=== PATIENT | male | born 2000 | race Caucasian/White ===

== ENCOUNTER 2023-11-23 21:32 | Emergency (ER) | payer BC ==
[~2023-11-23] VITALS: Ht 182.9 cm; Wt 90.7 kg
[2023-11-23] MEDS: diphenhydrAMINE HCL 50 MG/ML VIAL IV ONE (21:59)
[2023-11-23] MEDS: methylPREDNISolone SOD SUCC 125 MG/2ML VIAL IV ONE (21:59)
[2023-11-23] MEDS: FAMOTIDINE/PF INJ 20 MG/2 ML VIAL IV ONE (21:59)
[2023-11-23] MEDS: IV NS 0.9% 1,000 ML BAG IV ONE (21:59)
[2023-11-23 23:04] LABS: BASOPHILS % (AUTO) 0.2 % (0.0-2.0); CALCIUM, SERUM 9.5 mg/dL (8.5-10.1); CREATININE 1.4 mg/dL (0.6-1.3); EOSINOPHILS # (AUTO) 0.1 K/uL (0.0-0.7); EOSINOPHILS % (AUTO) 1.1 % (0.0-6.0); HEMATOCRIT 44 % (39-51); LYMPHOCYTES % (AUTO) 46.4 % (20.0-44.0); MEAN CORPUSCULAR HEMOGLOBIN 30 PG (26.0-33.0); MEAN CORPUSCULAR HGB CONC 35 g/dl (31.0-36.0); MEAN CORPUSCULAR VOLUME 87 fL (80-96); MONOCYTES # (AUTO) 0.2 K/uL (0.1-1.30); MONOCYTES % (AUTO) 2.9 % (2.0-12.0); NEUTROPHILS # (AUTO) 4.3 K/uL (1.8-8.9); NEUTROPHILS % (AUTO) 49.4 % (43.0-81.0); PLATELET COUNT (AUTO) 248 K/uL (150-450); POTASSIUM 3.2 mmol/L (3.5-5.1); RED BLOOD CELL COUNT(AUTO) 4.99 MIL/uL (4.5-6.0); RED CELL DISTRIBUTION WIDTH 13.2 % (11.5-15.0); WHITE BLOOD COUNT (AUTO) 8.6 K/uL (4.3-11.0)
[2023-11-23 23:19] LABS: ALBUMIN 3.9 g/dL (3.4-5.0); BILIRUBIN,DIRECT 0.1 mg/dL (0.0-0.2); BILIRUBIN,TOTAL 0.4 mg/dL (0.2-1.0); TOTAL PROTEIN, SERUM 7.4 g/dL (6.4-8.2)
[2023-11-23] MEDS ORDERED: DIPH-530 PO (23:19)
[2023-11-23] MEDS ORDERED: ALBU18HF2 INH (23:19)
[2023-11-23] MEDS ORDERED: EPIN0.3P3 IM (23:19)
[2023-11-23] MEDS ORDERED: PRED50TA PO (23:19)
[2023-11-23] MEDS ORDERED: FAMO40TA7 PO (23:19)
[2023-11-23 23:59] VITALS: BP 124/85; TEMP 98.7; O2SAT 96
== END 2023-11-23 23:59 | disposition home or self-care (01) ==
LOC: ER 21:33
DX: T78.1XXA Other adverse food reactions, not elsewhere classified, initial encounter (principal); Z79.899 Other long term (current) drug therapy; X58.XXXA Exposure to other specified factors, initial encounter
CPT/HCPCS: 99284; 96374; 96361; 96375; 93005; 85025; 80048; 80076; 36415; J1200; J3490; J2930; J7030